=== PATIENT | male | born 1985 | race Two or more races ===

== ENCOUNTER 2024-10-17 13:15 | Emergency (ER) | payer OTHER ==
[~2024-10-17] VITALS: Ht 170.2 cm; Wt 72.6 kg
[2024-10-17 13:24] VITALS: O2SAT 100
== END 2024-10-17 15:14 | disposition left against medical advice (07) ==
LOC: ER 13:15
DX: M79.10 Myalgia, unspecified site (principal); Z53.21 Procedure and treatment not carried out due to patient leaving prior to being seen by health care provider
CPT/HCPCS: A4606; A4663